=== PATIENT | female | born 1965 | race Caucasian/White ===

== ENCOUNTER 2021-08-03 21:25 | Emergency (ER) | payer BC ==
[2021-08-03 22:03] VITALS: PULSE 87
[2021-08-03] MEDS ORDERED: Sodium Chloride 0.9% 2.5 ML Syringe FLUSH PRN (22:04)
[2021-08-03] MEDS ORDERED: Sodium Chloride 0.9% 1,000 ML IV ONE (22:04)
[2021-08-03] MEDS ORDERED: Sodium Chloride 0.9% 10 ML Syringe FLUSH PRN (22:04)
[2021-08-03] MEDS ORDERED: Ondansetron 4 MG/2 ML SDV IVPUSH ONE (22:23)
[2021-08-03] MEDS ORDERED: Pantoprazole 40 MG in Sodium Chloride 0.9% 10 ML IVPUSH ONE (22:23)
[2021-08-03] MEDS ORDERED: fentaNYL 50 MCG/ML SDV IVPUSH ONE (22:23)
[2021-08-03 22:50] LABS: CARBON DIOXIDE,CO2 28.6 mmol/L (21.0-32.0); POTASSIUM,K 3.8 mmol/L (3.5-5.1)
[2021-08-04 00:52] VITALS: BP 121/74
== END 2021-08-04 00:52 | disposition home or self-care (01) ==
LOC: MW.ED 21:25
DX: K21.9 Gastro-esophageal reflux disease without esophagitis (principal); E66.9 Obesity, unspecified; Z68.42 Body mass index [BMI] 45.0-49.9, adult; Z91.040 Latex allergy status; Z79.899 Other long term (current) drug therapy
CPT/HCPCS: 36415; 74176; 80053; 81003; 83690; 84703; 85025; 96361; 96374; 96375; 99284; C9113; J2405; J3010; J3490; J7030

== ENCOUNTER 2022-12-19 06:43 | Day surgery (SDC) | payer BC ==
[~2022-12-19 06:43] MED LIST: Lactated Ringers 1,000 ML IV SCH; Scopolamine 1.5 MG Transdermal Patch TOP ONE
[2022-12-19 07:13] LABS: HEMATOCRIT 44.7 % (37.0-47.0); HEMOGLOBIN 14.9 g/dL (12.0-16.0); MEAN CORPUSCULAR HEMOGLOBIN 30.5 pg (28.0-32.0); MEAN CORPUSCULAR HGB CONC 33.3 g/dL (32.0-36.0); MEAN CORPUSCULAR VOLUME 91.6 fL (83.0-99.0); MEAN PLATELET VOLUME 10.4 fL (9.4-12.3); PLATELET COUNT,PLT 277 K/uL (150-400); RED BLOOD CELL COUNT 4.88 M/uL (4.10-5.30); WHITE BLOOD CELL COUNT,WBC 10.31 K/uL (3.9-11.3)
[2022-12-19] MEDS ORDERED: Sugammadex Sodium 200 MG/2 ML VIAL ONE (07:13)
[2022-12-19] MEDS ORDERED: Ondansetron 4 MG/2 ML SDV ONE (07:13)
[2022-12-19] MEDS ORDERED: Morphine 10 MG/ML SDV ONE (07:13)
[2022-12-19] MEDS ORDERED: Rocuronium Bromide 50 MG/5 ML Syringe ONE (07:13)
[2022-12-19] MEDS ORDERED: Metoclopramide 10 MG/2 ML SDV ONE (07:13)
[2022-12-19] MEDS ORDERED: fentaNYL 100 MCG/2 ML SDV ONE (07:13)
[2022-12-19] MEDS ORDERED: Magnesium Sulfate (4.06 MEQ/ML) 5 GM/10 ML SDV ONE (07:13)
[2022-12-19] MEDS ORDERED: Lidocaine 2% 5 ML SDV ONE (07:13)
[2022-12-19] MEDS ORDERED: propofoL 100 ML ONE (07:17)
[2022-12-19] MEDS ORDERED: HYDROmorphone 1 MG/ML Syringe IVPUSH PRN (07:30)
[2022-12-19] MEDS ORDERED: Ondansetron 4 MG/2 ML SDV IVPUSH PRN (07:30)
[2022-12-19] MEDS ORDERED: droPERidol 5 MG/2 ML SDV IVPUSH PRN (07:30)
[2022-12-19] MEDS ORDERED: Albuterol 0.083% 2.5 MG/3 ML Neb Soln NEB PRN (07:30)
[2022-12-19] MEDS ORDERED: Morphine 2 MG/ML SYRINGE IVPUSH PRN (07:30)
[2022-12-19] MEDS ORDERED: Metoclopramide 10 MG/2 ML SDV IVPUSH PRN (07:30)
[2022-12-19] MEDS ORDERED: fentaNYL 50 MCG/ML SDV IVPUSH PRN (07:30)
[2022-12-19] MEDS ORDERED: Naloxone 0.4 MG/ML SDV IVPUSH PRN (07:30)
[2022-12-19] MEDS ORDERED: Esmolol 100 MG/10 ML SDV ONE ×2 (08:10→08:13)
[2022-12-19 09:52] VITALS: BP 125/80; PULSE 63
== END 2022-12-19 10:00 | disposition home or self-care (01) ==
LOC: MW.SDS 06:43
PROVIDERS: ATTEND Obstetrics & Gynecology
DX: N84.1 Polyp of cervix uteri (principal); N95.0 Postmenopausal bleeding; N76.0 Acute vaginitis; F17.210 Nicotine dependence, cigarettes, uncomplicated; K21.9 Gastro-esophageal reflux disease without esophagitis; M54.2 Cervicalgia; G47.33 Obstructive sleep apnea (adult) (pediatric); F41.9 Anxiety disorder, unspecified; E66.9 Obesity, unspecified; Z68.42 Body mass index [BMI] 45.0-49.9, adult; Z90.49 Acquired absence of other specified parts of digestive tract; Z79.899 Other long term (current) drug therapy; Z91.040 Latex allergy status
CPT/HCPCS: 36415; 58558; 85027; A9270; J0131; J2270; J2704; J3010; J3475; J3490; J7120; J2405; J2765

== ENCOUNTER 2025-01-06 21:40 | Emergency (ER) | payer OTHER ==
[2025-01-06] MEDS: Acetaminophen/HYDROcodone 325-10 MG Tab PO ONE (22:10)
[2025-01-06 23:27] VITALS: BP 123/65; PULSE 79
== END 2025-01-06 23:26 | disposition home or self-care (01) ==
LOC: MW.ED 21:40
DX: G89.18 Other acute postprocedural pain (principal); M79.18 Myalgia, other site; Z75.3 Unavailability and inaccessibility of health-care facilities; Z91.040 Latex allergy status; Z79.899 Other long term (current) drug therapy; Z90.49 Acquired absence of other specified parts of digestive tract
CPT/HCPCS: 99283; A9270